=== PATIENT | female | born 1975 | race Caucasian/White ===

== ENCOUNTER 2017-01-09 16:00 | Emergency (ER) | payer OTHER ==
[2017-01-09 16:05] VITALS: BP 118/81
== END 2017-01-09 17:57 | disposition left against medical advice (07) ==
LOC: ED 16:00
DX: R07.9 Chest pain, unspecified (principal); Z53.21 Procedure and treatment not carried out due to patient leaving prior to being seen by health care provider
CPT/HCPCS: 93005

== ENCOUNTER 2017-06-19 12:47 | Emergency (ER) | payer OTHER ==
[2017-06-19 15:40] VITALS: BP 111/80
--- NOTE | 2017-06-19 18:55 | UC ---
Hortencia Cobos Julia, scribed for Pedro Edward MD on 06/19/17 at 1546 . HPI Febrile Illness - HPI Summary HPI Summary: This patient is a 42 year old F [place] [facility] [place] chief complaint of general malaise for past four days, worsening today. Patient reports fever, fatigue, sore throat, body aches, R ear pain, non-productive cough , chest pain with cough, and PATE. Symptoms aggravated by coughing. - History of Current Complaint Time Seen by Provider: 06/19/17 15:36 Hx Obtained From: Patient Hx Last Menstrual Period: hysterectomy Onset/Duration: Started Days Ago, Still Present, Worse Since - today Timing: Constant Initial Severity: Mild Current Severity: Moderate Pain Intensity: 0 Aggravating Factors: Other: - cough Associated Signs and Symptoms: Other: - fever, fatigue, sore throat, body aches , R ear pain, non-productive cough , chest pain with cough, and PATE - Allergy/Home Medications Allergies/Adverse Reactions: Allergies Allergy/AdvReac Type Severity Reaction Status Date / Time No Known Allergies Allergy Verified 06/19/17 15:40 PMH/Surg Hx/FS Hx/Imm Hx - Additional Past Medical History Additional PMH: fibromyalgia - Surgical History Surgical History: Yes Surgery Procedure, Year, and Place: csection, appy, hysterectomy - Family History Known Family History: Positive: Other - breast CA - mother - Social History Alcohol Use: Rare Substance Use Type: None Smoking Status (MU): Never Smoked Tobacco - Immunization History Most Recent Tetanus Shot: unknown Review of Systems Constitutional: Fever, Fatigue ENT: Sore Throat, Ear Ache - R Respiratory: Cough, Other - PATE Cardiovascular: Chest Pain Musculoskeletal: Myalgia All Other Systems Reviewed And Are Negative: Yes Physical Exam Triage Information Reviewed: Yes Vital Signs: Initial Vital Signs Temp 97.7 F 06/19/17 15:37 Pulse 104 06/19/17 15:37 Resp 20 06/19/17 15:37 BP 111/80 06/19/17 15:37 Pulse Ox 100 06/19/17 15:37 Vital Signs Reviewed: Yes - Additional Comments General: Mild ill appearing, no pain distress Skin: warm, color reflects adequate perfusion, dry Head: normal Eyes: EOMI, REKHA ENT: Dry cough, TM normal Neck: supple, nontender Respiratory: CTA, breath sounds present Cardiovascular: Regular rhythm mildly tachycardic Abdomen: soft, nontender Bowel: present Musculoskeletal: normal, strength/ROM intact Neurological: normal, sensory/motor intact, A&O x3 Psychological: affect/mood appropriate Course/Dx - Diagnoses Clinic Provider Diagnoses: BRONCHITIS WITH BRONCHOSPASM Discharge - Discharge Plan Condition: Stable Disposition: HOME Prescriptions: Albuterol HFA INHALER* [Ventolin HFA Inhaler*] 2 puff INH Q4H PRN #1 mdi PRN Reason: Dyspnea Azithromyxin CHARLIE (NF) [Z-Charlie (Zithromax) 250 mg tabs #6] 2 tab PO .TODAY, THEN 1 DAILY #6 tab Patient Education Materials: Acute Bronchitis (ED), Bronchospasm (ED) Referrals: Dee Dee Lazo [Primary Care Provider] - Additional Instructions: FOLLOW UP WITH YOUR DOCTOR. GET RECHECKED FOR ANY WORSENING OF YOUR CONDITION OR QUESTIONS OR CONCERNS. The documentation as recorded by the Hortencia villalta Julia accurately reflects the service I personally performed and the decisions made by me, Pedro Edward MD.
== END 2017-06-19 15:53 | disposition home or self-care (01) ==
LOC: UCEAST 12:47
DX: J20.9 Acute bronchitis, unspecified (principal); M79.7 Fibromyalgia
CPT/HCPCS: 99212; G0463